=== PATIENT | female | born 1980 | race Caucasian/White ===

== ENCOUNTER 2020-07-15 17:52 | Emergency (ER) | payer BC, OTHER ==
[2020-07-15 20:11] LABS: Urine Blood TRACE (NEG); Urine Glucose NEGATIVE (NEG); Urine Protein 1+ (NEG); Urine Specific Gravity >1.030 (1.005-1.030); Urine pH 5.5 (5.0-7.0)
[2020-07-15] MEDS ORDERED: IBUPROFEN 400 MG TAB ONE (20:38)
[2020-07-15] MEDS ORDERED: IBUPROFEN 200 MG TAB PO ONE (20:38)
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
[2020-07-15 22:30] VITALS: BP 119/80; TEMP 99.3; O2SAT 98
== END 2020-07-15 21:58 | disposition home or self-care (01) ==
LOC: ER 17:52
DX: S63.591A Other specified sprain of right wrist, initial encounter (principal); V49.49XA Driver injured in collision with other motor vehicles in traffic accident, initial encounter
CPT/HCPCS: 71045; 72040; 81003; 81025; 99284